=== PATIENT | female | born 1975 | race Caucasian/White ===

== ENCOUNTER 2020-02-24 18:37 | Inpatient (IN) | payer OTHER ==
[~2020-02-24] VITALS: Ht 154.9 cm; Wt 74.4 kg
--- NOTE | 2020-02-24 19:00 | NUR ---
BACK PAIN X 3 DAYS, DENIES ANY INJURY. PATIENT A/OX4, BREATHING EVEN AND UNLABORED, AFEBRILE, NO COUGH NOR CONGESTION NOTED. PATIENT UNABLE TO GIVE URINE AT THIS TIME. IV LINE ESTABLISHED ON LEFT FOREARM G20 IV. NEEDS ATTENDED, KEPT COMFORTABLE.
[2020-02-24 19:04] LABS: BASOPHILS # (AUTO) 0.1 /CMM (0.0-0.2); EOSINOPHILS % (AUTO) 0.6 % (0.0-6.0); HEMATOCRIT 48 % (33-45); HEMOGLOBIN 16.4 g/dL (11.5-14.8); LYMPHOCYTES % (AUTO) 25.2 % (20.0-44.0); MEAN CORPUSCULAR HGB CONC 35 g/dl (31.0-36.0); MEAN CORPUSCULAR VOLUME 86 fL (82-100); MONOCYTES # (AUTO) 0.5 /CMM (0.1-1.30); MONOCYTES % (AUTO) 6.2 % (2.0-12.0); NEUTROPHILS # (AUTO) 5.4 /CMM (1.8-8.9); PLATELET COUNT (AUTO) 314 /CMM (150-450); RED BLOOD CELL COUNT(AUTO) 5.52 MIL/uL (4.0-5.2); WHITE BLOOD COUNT (AUTO) 8.1 K/uL (4.3-11.0)
[2020-02-24 19:12] LABS: CREATININE 0.8 mg/dL (0.6-1.3); POTASSIUM 3.6 mmol/L (3.5-5.1)
[2020-02-24 19:29] LABS: BILIRUBIN,DIRECT 0.1 mg/dL (0.0-0.2); BILIRUBIN,TOTAL 0.4 mg/dL (0.2-1.0); TOTAL PROTEIN, SERUM 8.3 g/dL (6.4-8.2)
--- NOTE | 2020-02-24 19:30 | NUR ---
REC'D REPORT FROM HUMBERTO XIONG FOR ERROL
[2020-02-24] MEDS ORDERED: methylPREDNISolone SOD SUCC 125 MG/2ML VIAL IV ONE (20:00)
[2020-02-24] MEDS ORDERED: methylPREDNISolone SOD SUCC 125 MG/2ML VIAL ONE (20:15)
--- NOTE | 2020-02-24 20:18 | NUR ---
PT RESTING COMFORTABLY IN BED. VITAL SIGNS STABLE. NO ACUTE DISTRESS NOTED AT THIS TIME. WILL CONTINUE TO MONITOR
--- NOTE | 2020-02-24 20:29 | NUR ---
REPORT GIVEN TO HUMBERTO ALEX FOR ERROL
[2020-02-24] MEDS ORDERED: ONDANSETRON HCL/PF 4 MG/2 ML VIAL IVP PRN (20:30)
[2020-02-24] MEDS ORDERED: ACETAMINOPHEN 325 MG TABLET PO PRN (20:30)
[2020-02-24] MEDS ORDERED: ZOLPIDEM TARTRATE 5 MG TABLET PO PRN (20:30)
[2020-02-24] MEDS ORDERED: MAGNESIUM HYDROXIDE 30 ML UDC PO PRN (20:30)
[2020-02-24] MEDS ORDERED: Z GUARD REMEDY 2 OZ OINT TP PRN (20:30)
[2020-02-24] MEDS ORDERED: MORPHINE SULFATE INJ 2 MG/ML DISP.SYRIN IV PRN (20:30)
[2020-02-24] MEDS ORDERED: MAG HYDROX/AL HYDROX/SIMETH 30 ML UDC PO PRN (20:30)
--- NOTE | 2020-02-24 21:05 | NUR ---
PT TRANSFER TO MS BED VIA [facility]
[2020-02-24 21:15] VITALS: BP 140/93
--- NOTE | 2020-02-24 21:20 | NUR ---
MS PRESSURIZER NOTES PATIENT TRANSFERRED FROM ER VIA [facility] AT 2115. IN STABLE CONDITION. A/OX4. ON ROOM AIR. REQUIRES ASSISTANCE UPON AMBULATION; UNSTEADY GAIT. ABLE TO VERBALIZE NEEDS. IV PRESENT ON LEFT FOREARM, SIZE 20, INTACT & PATENT, HEP LOCKED. SKIN ASSESSMENT COMPLETED; SACRAL REDNESS/SKIN TEAR PRESENT; PHOTOS TAKEN. BELONGINGS INVENTORIED; MULTIPLE TOOLS/KNIVES AND LOOSE JEWELRY PRESENT; CHARGE NURSE NOTIFIED; PHOTOS TAKEN AND PLACED IN CHART; EXPLAINED TO PATIENT THAT BELONGINGS WILL BE KEPT IN NURSING STATION DURING HOSPITAL STAY, PATIENT VERBALIZED UNDERSTANDING. MRSA SWAB COMPLETED IN ER. HOME MEDICATIONS REVIEWED WITH PATIENT. ORDERS PLACED BY PELT INSPECTOR MD. SAFETY MEASURES IN PLACE. BED LOCKED, SIDE RAILS X2, CALL LIGHT WITHIN REACH. VITALS SIGNS WNL. WILL CONTINUE TO MONITOR.
[2020-02-24] MEDS: IV NS 0.9% 1,000 ML IV PRN (22:38)
[2020-02-24] MEDS: HYDROCODONE/APAP 5/325MG 1 EACH TABLET PO PRN (23:32)
[2020-02-25] MEDS ORDERED: GABA300C PO (00:12)
[2020-02-25] MEDS ORDERED: QUET400T PO (00:12)
--- NOTE | 2020-02-25 06:25 | NUR ---
MS RN CLOSING NOTES PATIENT SLEEPING IN BED, EASY TO AWAKEN. REMAINED STABLE DURING SHIFT. A/OX4. ON ROOM AIR. NO S/S OF ACUTE RESPIRATORY DISTRESS OR C/O PAIN AT THIS TIME. IV ON LEFT FOREARM, INTACT & PATENT, WITH NS RUNNING AT 75 ML/HR. SAFETY MEASURES IN PLACE. BED LOCKED, ALARM ON, SIDE RAILS X2, CALL LIGHT WITHIN REACH. WILL ENDORSE TO DAY SHIFT NURSE PLAN OF CARE.
[2020-02-25 06:40] LABS: ALBUMIN 3.3 g/dL (3.4-5.0); BILIRUBIN,TOTAL 0.4 mg/dL (0.2-1.0); MAGNESIUM 2.1 mg/dL (1.8-2.4); PHOSPHORUS 4.3 mg/dL (2.5-4.9); POTASSIUM 4.5 mmol/L (3.5-5.1); TOTAL PROTEIN, SERUM 7.5 g/dL (6.4-8.2)
[2020-02-25 06:52] LABS: BASOPHILS % (AUTO) 0.1 % (0.0-2.0); HEMATOCRIT 45 % (33-45); HEMOGLOBIN 15.1 g/dL (11.5-14.8); LYMPHOCYTES # (AUTO) 0.8 /CMM (0.8-4.8); LYMPHOCYTES % (AUTO) 10.7 % (20.0-44.0); MEAN CORPUSCULAR HGB CONC 33 g/dl (31.0-36.0); MEAN CORPUSCULAR VOLUME 87 fL (82-100); MONOCYTES # (AUTO) 0.1 /CMM (0.1-1.30); MONOCYTES % (AUTO) 0.9 % (2.0-12.0); NEUTROPHILS # (AUTO) 6.5 /CMM (1.8-8.9); NEUTROPHILS % (AUTO) 88.3 % (43.0-81.0); PLATELET COUNT (AUTO) 328 /CMM (150-450); RED BLOOD CELL COUNT(AUTO) 5.21 MIL/uL (4.0-5.2); WHITE BLOOD COUNT (AUTO) 7.3 K/uL (4.3-11.0)
--- NOTE | 2020-02-25 07:32 | NUR ---
MS RN NOTES PATIENT'S CONTRABAND TO BE STORED IN GPS LOCKER PER CHARGE NURSE/NURSING CLIENT SERVICE SUPERVISOR.
--- NOTE | 2020-02-25 07:38 | NUR ---
MS RN NOTES PATIENT'S CONTRABAND SENT TO GPS AND KEPT IN PATIENT LOCKER 211 A.
[2020-02-25 08:00] VITALS: BP 128/66
--- NOTE | 2020-02-25 08:15 | NUR ---
WOUND CARE CONSULT: PT PRESENTS WITH SLIGHT RASH TO BUTTOCKS, PRESENT ON ADMISSION. RECOMMENDATIONS MADE FOR SKIN CARE AND PROTECTION. DISCUSSED WITH NURSING STAFF. PT IS CONTINENT AT THIS TIME AND INDEPENDENT WITH BED MOBILITY. LEG WEAKNESS NOTED. WILL SEE PRN. CURRENT KVNG SCORE IS 18. MD IN AGREEMENT WITH PLAN OF CARE. Addendum: 02/25/20 at 0818 by YOVANI SINGLETARY WNDNU Amended: Links added.
--- NOTE | 2020-02-25 08:30 | NUR ---
MS RN OPENING NOTES RECEIVED PT IN BED, AWAKE, A/O X3-4. PT TOLERATING RA WITH NO ACUTE RESPIRATORY DISTRESS NOTED. PT DENIES AN PAIN OR DISCOMFORT AT THIS TIME. IVF NS AT 75ML/HR TO LFA G20 SL, INTACT AND OPERATIONAL. DURING MORNING ROUNDS LOU/DAYNA DID MED RECON WITH PT. PT DENIES ANY CONCERNS OR QUESTIONS AT THIS TIME. PT KEPT COMFORTABLE IN BED. CALL LIGHT KEPT WITHIN REACH. PT'S BED IN LOWEST, LOCKED POSITION WITH SR X3. WILL CONTINUE PLAN OF CARE.
--- NOTE | 2020-02-25 08:35 | NUR ---
MS RN NOTES PT AFEBRILE. PT DENIES SORE THROAT AND NO OTHER DISCOMFORT REPORTED.
[2020-02-25] MEDS ORDERED: LORA-259 PO (08:41)
[2020-02-25] MEDS ORDERED: INTE30SY IM (08:41)
[2020-02-25] MEDS ORDERED: INFLUENZA VACCINE 2019-20 0.5 ML DISP.SYRIN IM ONE (10:00)
--- NOTE | 2020-02-25 11:00 | NUR ---
MS RN NOTES FLU VACCINE ADMINISTERED TO LDELTOID PER PT'S PREFERENCE. WILL CONTINUE TO MONITOR PT.
[2020-02-25] MEDS ORDERED: DEXTROSE 50%-WATER 50 ML DISP.SYRIN IV PRN (11:30)
[2020-02-25] MEDS ORDERED: LORAZEPAM 1 MG TABLET PO PRN (11:30)
--- NOTE | 2020-02-25 11:30 | NUR ---
SOCIAL SERVICE ASSESSMENT: In [place] of COVID-19, LEONEL conduced assessment over the phone. Pt is alert and oriented x4. Pt is homeless and does not have a primary contact center professional as she she states she does not have a relationship with her family that live in [place] and her ex- whom is also homeless does not care about her. Pt states her current place of dwelling is under a bridge in a tent on [address] in [place] she states she has been living there for the past 3 weeks and was previously living in a tent on [address] for 5 years. She states she has been homeless in [place] for 8 years after she came here from [place] for her then boyfriend. Pt states she does not have a source of income and is not currently receiving SSI, food stamps, GR, or SSDI. Pt is ambulatory and is independent with ADL's she states she use to use DME's (cane and walker) but they were disposed by [employer]. 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 Pt denies suicidal/homicidal ideation and also denied visual/auditory hallucinations. Pt states that she currently feels sad and depressed and began crying due to her current living situation and due to her Multiple Sclerosis. Pt states that she has been on a low income housing waiting list with [facility] for the past 8 years and has not heard back from them. Pt wishes to be discharged back to her current place of dwelling; under a bridge in a tent on [address] in [place] as she states she needs to pharmacy picking technician her belongings before she returns to living in a tent on [address]. LEONEL consulted with RN who states pt does not have a discharge order for this present day. At time of discharge pt will need a TAP CARD with directions to [facility] in [place] and will also need clothes and shoes. LEONEL placed homeless resource packet in pts chart along with the homeless waiver that will be signed at time of discharge.
[2020-02-25] MEDS: INSULIN REGULAR, HUMAN 100 UNIT/ML 3 ML VIAL SQ PRN ×2 (12:02→17:40)
[2020-02-25] MEDS: BLOOD SUGAR DIAGNOSTIC 1 EACH STRIP VI SCH ×3 (12:02→21:59)
--- NOTE | 2020-02-25 12:03 | NUR ---
MS RN NOTES PT ACCU CHECK IS 343, PT REFUSED TO HAVE INSULIN. EXPLAINED RISKS AND BENEFITS. WILL NOTIFY MD/SK. WILL CONTINUE TO MONITOR.
[2020-02-25] MEDS: methylPREDNISolone SOD SUCC 125 MG/2ML VIAL IV SCH ×2 (12:05→18:11)
--- NOTE | 2020-02-25 12:28 | NUR ---
MS RN NOTES PER PT, AFTER GIVING SOLUMEDROL AND FLUSHING PIV WITH NS, BURNING WAS FELT. PIV REMOVED. APPLIED ICE BAG.
--- NOTE | 2020-02-25 12:30 | NUR ---
MS RN NOTES MD/SK MADE AWARE ABOUT RN/INCIDENT.
--- NOTE | 2020-02-25 12:37 | NUR ---
MS RN NOTES MELVINA CALLED AND NOTIFIED ABOUT INCIDENT ABOUT PIV OF PT REMOVAL. ORDERS PLACED FOR PT TO CHECK HIV, HEPB AND HEP C.
[2020-02-25] MEDS: QUETIAPINE FUMARATE 100 MG TABLET PO SCH (17:27)
[2020-02-25] MEDS: GABAPENTIN 300 MG CAPSULE PO SCH (17:27)
--- NOTE | 2020-02-25 18:00 | NUR ---
MS RN NOTES INFORMED HOSPTALIST/SK REGARDING PT PREFERENCE NOT TO TAKE ANY DM MEDS AND/OR INSULIN. RISKS AND BENEFITS MADE AWARE PT, STILL INSIST TO REFUSE.
--- NOTE | 2020-02-25 19:27 | NUR ---
MS RN CLOSING NOTES PT REMAINS IN BED, AWAKE, A/O X3-4. PT TOLERATING RA WITH NO ACUTE RESPIRATORY DISTRESS NOTED. PT DENIES AN PAIN OR DISCOMFORT AT THIS TIME. IVF NS AT 75ML/HR TO RFA G18, INTACT AND OPERATIONAL. PT KEPT COMFORTABLE IN BED. ALL NEEDS AND CARE ATTENDED. CALL LIGHT KEPT WITHIN REACH. PT'S BED IN LOWEST, LOCKED POSITION WITH SR X3. ENDORSED TO INCOMING NIGHT NURSE FOR ERROL.
[2020-02-25 20:15] VITALS: BP 109/54
--- NOTE | 2020-02-25 20:23 | NUR ---
MS/RN OPENING NOTES: RECEIVED PT IN BED, ASLEEP IN BED. A/O X3-4. PT TOLERATING RA WITH NO ACUTE RESPIRATORY DISTRESS. NO COMPLAINS OF PAIN OR DISCOMFORT AT THIS TIME. IVF NS AT 75ML/HR TO LFA G20 SL, INTACT AND PATENT. PT KEPT COMFORTABLE IN BED. CALL LIGHT KEPT WITHIN REACH. PT'S BED IN LOWEST, LOCKED POSITION WITH SR X3. WILL CONTINUE TO MONITOR ACCORDINGLY.
[2020-02-25 20:55] VITALS: BP 109/54
[2020-02-25] MEDS: INSULIN GLARGINE, 100 UNIT/ML CARTRIDGE SQ SCH (22:00)
--- NOTE | 2020-02-25 22:03 | NUR ---
MS/RN NOTES: BLOOD SUGAR CHECK OF 290. PATIENT REFUSES TO RECEIVE HER INSULIN LANTUS AND REGULAR INSULIN. INFORMED ABOUT THE RISKS AND BENEFITS 3X. STILL REFUSED. WILL CONTINUE TO MONITOR.
[2020-02-26] MEDS: IV NS 0.9% 1,000 ML IV PRN ×2 (01:40→18:04)
[2020-02-26] MEDS: HYDROCODONE/APAP 5/325MG 1 EACH TABLET PO PRN (03:40)
--- NOTE | 2020-02-26 03:40 | NUR ---
MS/RN NOTES: PATIENT COMPLAINED OF PAIN ON HER LOWER BACK. REQUESTED FOR PAIN MEDICINE. VS WNL. GIVEN NORCO 5MG PO. WILL CONTINUE TO MONITOR ACCORDINGLY.
--- NOTE | 2020-02-26 06:26 | NUR ---
MS/RN CLOSING NOTES: PATIENT REMAINS A/O X3-4. SLEEPING IN BED. PT TOLERATING RA WITH NO ACUTE RESPIRATORY DISTRESS NOTED. DENIES AN PAIN OR DISCOMFORT AT THIS TIME. IVF NS AT 75ML/HR TO RFA G18. KEPT COMFORTABLE AND ETHNOARCHAEOLOGIST BED. ALL NEEDS AND CARE ATTENDED. DENIES TO GET HER BLOOD SUGAR CHECK FOR MORNING. CALL LIGHT KEPT WITHIN REACH. PT'S BED IN LOWEST, LOCKED POSITION WITH SR X3. ENDORSED TO INCOMING DAY NURSE FOR ERROL.
--- NOTE | 2020-02-26 07:30 | NUR ---
MS/RN Opening Note Patient received AO x 4, sleeping in bed, able to response all stimuli, does no c/o pain or any discomfort. Refused insulin this morning. Skin is warm to touch clean/dry, intact IV site. Respiratory even and unlabored with room air. No s/s of bleeding observed. Kept lower position of the bed with locked wheel for safety. Call light within reach, will continue to monitor.
--- NOTE | 2020-02-26 07:30 | NUR ---
MS/RN Opening Note Patient received AO x 4, sleeping in bed, able to response all stimuli, does no c/o pain or any discomfort. Refused insulin this morning. Skin is warm to touch clean/dry, intact IV site. Respiratory even and unlabored with oxygen at 2LPM. NO s/s of bleeding observed. Kept lower position of the bed with locked wheel for safety. Will continue to monitor. Addendum: 02/26/20 at 1013 by VEDA ROSARIO RN Error
[2020-02-26 08:00] VITALS: BP 113/63
[2020-02-26 08:12] LABS: HIV SCRN 4G wRFX Non Reactive (Non Reactive)
[2020-02-26] MEDS: QUETIAPINE FUMARATE 100 MG TABLET PO SCH ×2 (08:47→16:37)
[2020-02-26] MEDS: GABAPENTIN 300 MG CAPSULE PO SCH ×2 (08:47→16:37)
[2020-02-26] MEDS: methylPREDNISolone SOD SUCC 125 MG/2ML VIAL IV SCH ×3 (08:47→16:37)
[2020-02-26] MEDS: BLOOD SUGAR DIAGNOSTIC 1 EACH STRIP VI SCH ×5 (08:51→21:37)
--- NOTE | 2020-02-26 11:00 | NUR ---
Given walker to patient.
--- NOTE | 2020-02-26 12:30 | NUR ---
Patient refused insulin x 3, BS 351mg/dl at this time.
--- NOTE | 2020-02-26 15:00 | NUR ---
Patient refused blood draw for lab.
[2020-02-26 16:00] VITALS: BP 115/63
--- NOTE | 2020-02-26 17:40 | NUR ---
Patient has neurology consult, left message Dr. Hussein office for reminder.
--- NOTE | 2020-02-26 18:30 | NUR ---
MS/RN Closing Note Patient in bed, sleeping comfortably. Does no appears pain or discomfort, skin is warm to touch, kept clean/dry, intact IV site, running NS at 75 ml/HR. Respiratory even and unlabored with oxygen on/off. Remain lower position of bed with locked wheel for safety. Patient refused check blood sugar at evening. Call light within reach, will endorse cage shift manager.
--- NOTE | 2020-02-26 19:00 | NUR ---
MONORAIL CRANE OPERATOR OPENING NOTES RECEIVED PT IN BED AWAKE ALERT AND ORIENTED X3 , ABLE TO MAKE NEEDS KNOWN RESPIRATIONS EVEN AND UNLABORED WITH EQUAL RISE AND FALL OF CHEST,CURRENTLY ON 4 L VIA NC AND TOLERATING WELL. DENIES ANY PAIN OR DISCOMFORT AT THIS TIME, IV SITE TO RIGHT FA #22 G INTACT AND PATENT, NO REDNESS, NO INFILTRATION PRESENT, SITTER AT BEDSIDE, SAFETY PRECAUTIONS IN PLACE, LOW BED AND LOCKED, TOILETING AND FLUID NEEDS ATTENDED WILL CONTINUE TO MONITOR AND ATTEND TO NEEDS. REMAINS COMFORTABLE AT THIS TIME. Addendum: 02/26/20 at 1999 by MISAEL ZAMUDIO RN DISREGARD NOTE WRONG ENTRY
--- NOTE | 2020-02-26 19:10 | NUR ---
RN MS OPENING NOTE RECEIVED PT IN BED AWAKE ALERT AND ORIENTED X 4, RESPIRATIONS EVEN AND UNLABORED WITH EQUAL RISE AND FALL OF CHEST. IV SITE TO RIGHT FA #18G INTACT AND PATENT, NO REDNESS, NO INFILTRATION IVF RUNNING ORDERED, BSC AT BEDSIDE WITHIN REACH. LOW BED AND LOCKED, SAFETY PRECAUTIONS RENDERED, ORIENTED TO STAFF AND CALL LIGHT AND KEPT WITHIN REACH. FLUIDS AND TOILETING OFFERED, ALL NEEDS ATTENDED AT THIS TIME, WILL CONTINUE TO MONITOR.
[2020-02-26 20:00] VITALS: BP 112/50
[2020-02-26 20:17] VITALS: BP 112/50
[2020-02-26] MEDS: INSULIN GLARGINE, 100 UNIT/ML CARTRIDGE SQ SCH (21:36)
[2020-02-26] MEDS: *INSULIN REGULAR(HUMULIN R)HUM 100 UNIT/ML VIAL SQ PRN (21:38)
--- NOTE | 2020-02-27 05:20 | NUR ---
RN MS NOTES PATIENT REFUSED AM LABS X3 YELLING OUT "NO" DESPITE EDUCATION RISKS AND BENEFITS PROVIDED.
--- NOTE | 2020-02-27 06:25 | NUR ---
RN MS NOTES PATIENT REFUSED TO HAVE ACCUCHECK DONE X3 DESPITE RISKS ANS EDUCATION PROVIDED. PATIENT WAS RESISTIVE WHEN ASKED AND IGNORED STAFF.
--- NOTE | 2020-02-27 06:35 | NUR ---
RN MS CLOSING NOTE PT IN BED AWAKE ALERT AND ORIENTED X 4, RESPIRATIONS EVEN AND UNLABORED WITH EQUAL RISE AND FALL OF CHEST. IV SITE TO RIGHT FA #18G INTACT AND PATENT, NO REDNESS, NO INFILTRATION IVF RUNNING ORDERED, BSC AT BEDSIDE WITHIN REACH. LOW BED AND LOCKED, BED ALARM IN PLACE SAFETY PRECAUTIONS RENDERED, CALL LIGHT KEPT WITHIN REACH. FLUIDS AND TOILETING OFFERED THROUGHOUT SHIFT, ALL NEEDS WERE ATTENDED AT , WILL CONTINUE TO MONITOR AND ENDORSE TO NEXT SHIFT. NO CHANGES NOTED, REMAINS COMFORTABLE, REFUSED AM ACCU CHECK AND AM LABS DESPITE RISKS AND BENEFITS PROVIDED.
--- NOTE | 2020-02-27 07:00 | NUR ---
MS/RN NOTES PATIENT REFUSED FOR 0730 ACCUCHECK.
[2020-02-27] MEDS: BLOOD SUGAR DIAGNOSTIC 1 EACH STRIP VI SCH ×4 (07:30→22:09)
[2020-02-27] MEDS: IV NS 0.9% 1,000 ML IV PRN ×2 (07:33→20:30)
[2020-02-27 08:00] VITALS: BP 130/85
--- NOTE | 2020-02-27 08:33 | NUR ---
MS/RN OPENING NOTES RECEIVED PATIENT IN BED AWAKE ALERT AND ORIENTED X 4, RESPIRATIONS EVEN AND UNLABORED WITH EQUAL RISE AND FALL OF CHEST. IV SITE TO RIGHT FA #18G INTACT AND PATENT, NO REDNESS, NO INFILTRATION IVF RUNNING ORDERED, BSC AT BEDSIDE WITHIN REACH. LOW BED AND LOCKED, BED ALARM IN PLACE SAFETY PRECAUTIONS RENDERED, CALL LIGHT KEPT WITHIN REACH. WILL CONTINUE TO MONITOR.
[2020-02-27] MEDS ORDERED: INSU100I30 SQ (08:53)
[2020-02-27] MEDS ORDERED: PRED20TA PO (08:53)
[2020-02-27] MEDS: QUETIAPINE FUMARATE 100 MG TABLET PO SCH ×2 (09:03→16:31)
[2020-02-27] MEDS: GABAPENTIN 300 MG CAPSULE PO SCH ×2 (09:03→16:31)
[2020-02-27] MEDS: methylPREDNISolone SOD SUCC 125 MG/2ML VIAL IV SCH ×3 (09:03→16:31)
--- NOTE | 2020-02-27 12:00 | NUR ---
MS/RN NOTES PATIENT REFUSED TO TAKE BLOOD SUGAR CHECK EXPLAINED THE RISK AND BENEFITS PATIENT STILL REFUSING.
[2020-02-27] MEDS: INSULIN REGULAR, HUMAN 100 UNIT/ML 3 ML VIAL SQ PRN (17:28)
--- NOTE | 2020-02-27 17:45 | NUR ---
MS/RN NOTES BS 435MG/DL 15 UNIT INSULIN WAS GIVEN. MD IS AWARE FOR CRITICAL BLOOD SUGAR RESULT. WILL CONTINUE TO MONITOR.
--- NOTE | 2020-02-27 18:04 | NUR ---
MS/RN NOTES DOCTOR POLI PHONE ORDER 25 UNIT INSULIN GLARGINE, HUM SQ HS.
--- NOTE | 2020-02-27 19:10 | NUR ---
MS RN NOTES RECEIVED PT IN BED AWAKE AND ABLE TO MAKE NEEDS KNOWN. PT A/O 3. RESPIRATIONS EVEN AND UNLABORED WITH NO S/S OF ACUTE DISTRESS OR SOB NOTED. DENIES PAIN AT THIS TIME. PT WITH RFA #18G PATENT AND INTACT INFUSING NS @75CC/HR. SAFETY MEASURES IN PLACE WITH BED IN LOWEST LOCKED POSITION WITH SIDE RAILS UP X2. CALL LIGHT WITHIN REACH. WILL CONTINUE TO MONITOR.
--- NOTE | 2020-02-27 19:15 | NUR ---
MS RN NOTES PT NOTED AGITATED AND SCREAMING. PT THROWING WATER AND MAKING A MESS. ATTEMPTED TO CALM PT DOWN AND PT YELLS TO GET OUT OF ROOM. PT NOTED WANTING TO LEAVE AMA. WILL CONTINUE TO MONITOR.
--- NOTE | 2020-02-27 19:20 | NUR ---
MS RN NOTES PT NOTED REFUSING TO SIGN AMA PAPERS. PT STATING IM NOT SIGNING ANYTHING. PT STATING SHE WANTS TO SEE THE MD NOW. PT YELLING MORE. WILL CONTINUE TO MONITOR.
--- NOTE | 2020-02-27 19:27 | NUR ---
MS/RN CLOSING NOTES PATIENT IS ALERT AND ORIENTED X4. PATIENT IS NO APPARENT DISTRESS NOTED. PATIENT REFUSED FOR AFTERNOON VITAL SIGN. DENIES PAIN AT THIS TIME. PATENT AND INTACT. SEEN AND EXAMINED BY MD WITH ORDER MADE AND CARRIED OUT. ALL DUE MEDS WAS GIVEN. KEPT PATIENT CLEAN AND DRY THE WHOLE TIME. SAFETY PRECAUTIONS IN PLACED. BEDSIDE IN LOWEST POSITION. SIDE RAILS UP X2. CALL LIGHT WITHIN REACH. WILL ENDORSED TO INSURANCE COORDINATOR FOR ERROL.
--- NOTE | 2020-02-27 19:30 | NUR ---
MS RN NOTES PT CALMED DOWN AND NO LONGER AGITATED. WILL CONTINUE TO MONITOR.
[2020-02-27 20:48] VITALS: BP 131/84
[2020-02-27] MEDS ORDERED: INSULIN GLARGINE, 100 UNIT/ML CARTRIDGE SQ SCH (22:00)
[2020-02-27] MEDS: *INSULIN REGULAR(HUMULIN R)HUM 100 UNIT/ML VIAL SQ PRN (22:14)
--- NOTE | 2020-02-28 06:27 | NUR ---
MS RN NOTES PT REFUSED LABS AT THIS TIME. TAFE TEACHER WILL SEND ANOTHER TO DRAW AFTER BREAKFAST. WILL CONTINUE TO MONITOR.
[2020-02-28] MEDS: BLOOD SUGAR DIAGNOSTIC 1 EACH STRIP VI SCH ×2 (06:57→11:39)
[2020-02-28] MEDS: INSULIN REGULAR, HUMAN 100 UNIT/ML 3 ML VIAL SQ PRN ×2 (06:57→11:44)
--- NOTE | 2020-02-28 07:09 | NUR ---
MS RN NOTES PT IN BED AWAKE AND ABLE TO MAKE NEEDS KNOWN. PT A/O 3. RESPIRATIONS EVEN AND UNLABORED WITH NO S/S OF ACUTE DISTRESS OR SOB NOTED THROUGHOUT SHIFT. DENIES PAIN AT THIS TIME. PT WITH RFA #18G PATENT AND INTACT INFUSING NS @75CC/HR. PT KEPT CLEAN, DRY, AND COMFORTABLE. SAFETY MEASURES IN PLACE WITH BED IN LOWEST LOCKED POSITION WITH SIDE RAILS UP X2. CALL LIGHT WITHIN REACH. WILL ENDORSE TO ONCOMING NURSE FOR ERROL.
--- NOTE | 2020-02-28 07:28 | NUR ---
MS RN NOTES RECEIVED PATIENT IN BED, ASLEEP. PATIENT ON ROOM AIR BREATHING EVENLY AND WITH NO SOB PRESENT AT THIS TIME. PATIENT DOES NOT SHOW ANY SIGNS OF PAIN SUCH FACIAL GRIMACING, MOANING OR GUARDING. RFA IV ACCESS GAUGE #18 PRESENT AND INTACT, INFUSING NS @ 75 MLS/HR. SAFETY PRECAUTIONS IN PLACE; BED IN LOW POSITION AND LOCKED, RAILS UP X2, CALL LIGHT WITHIN REACH. WILL CONTINUE TO MONITOR PATIENT.
[2020-02-28 08:00] VITALS: BP 128/86
[2020-02-28] MEDS: methylPREDNISolone SOD SUCC 125 MG/2ML VIAL IV SCH ×3 (08:28→17:15)
[2020-02-28] MEDS: GABAPENTIN 300 MG CAPSULE PO SCH ×2 (08:29→17:15)
[2020-02-28] MEDS: QUETIAPINE FUMARATE 100 MG TABLET PO SCH ×2 (08:29→17:15)
--- NOTE | 2020-02-28 17:45 | NUR ---
MS RN NOTES EARLIER IN THE DAY PATIENT WANTED TO SPEAK WITH HER DOCTOR. DR. ASHTON STOPPED BY AND PATIENT VERBALIZED DESIRE TO GO LEAVE EVEN IF IT IS AMA. LATER DURING THE DAY AFTER HAVING DINNER PATIENT TOOK HER BELONGINGS AND LEFT AMA AFTER SIGNING THE AMA FORM. PATIENT HAS BEEN ASKED TO STAY AND GET BETTER BUT SHE WAS SCREAMING AND SAID SHE WANTS TO GO AND WE CAN NOT KEEP HER. HER WRIST BAND AND IV ACCESS HAVE BEEN REMOVED AND SHOES PROVIDED. PATIENT TOOK HER BELONGINGS AND LEFT.
== END 2020-02-28 17:50 | disposition left against medical advice (07) | DRG 43 ==
LOC: ER 18:37 → MED 20:20 → MEDSG2 02-25 13:29 → MED 02-27 12:59
PROVIDERS: ADMIT Internal Medicine; ATTEND Student in an Organized Health Care Education/Training Program
DX: G35 Multiple sclerosis (principal); E11.65 Type 2 diabetes mellitus with hyperglycemia; E44.1 Mild protein-calorie malnutrition; D35.01 Benign neoplasm of right adrenal gland; Z59.0 Homelessness; M48.061 Spinal stenosis, lumbar region without neurogenic claudication; M43.16 Spondylolisthesis, lumbar region; E86.0 Dehydration; E87.1 Hypo-osmolality and hyponatremia; Z88.0 Allergy status to penicillin; Z91.041 Radiographic dye allergy status; Z91.040 Latex allergy status; H54.7 Unspecified visual loss
CPT/HCPCS: 36415; 71045-TC; 72131-TC; 80048-TC; 80053-TC; 80061-TC; 80076-TC; 82962-TC; 83735-TC; 84100-TC; 84702-TC; 85025-TC; 86706; 86803; 87081-TC; 97110-TC; 97116-TC; 97530-TC; G0378; J1815; J2930; J7030; Q2036